=== PATIENT | female | born 1955 | race Caucasian/White ===

== ENCOUNTER 2017-11-14 16:00 | Inpatient (IN) ==
[2017-11-14 16:28] LABS: Basophils % 0.3 % (0.0-0.8); Eosinophils # 0.3 10*3/uL (0.0-0.87); Eosinophils % 2.5 % (0.00-10.9); Hematocrit 37.3 VOL% (35.7-47.0); Immature Granulocytes % 0.8 %; Immature Granulocytes Absolute 0.08 #; Lymphocytes # 1.8 10*3/uL (1.4-4.0); Lymphocytes % 17.5 % (21.3-54.2); Mean Corpuscular HGB Conc 32.2 GM/DL (32-36); Mean Corpuscular Hemoglobin 27 PG (27-34); Mean Corpuscular Volume 84.2 FL (87-102); Mean Platelet Volume 9.9 FL (9.6-12.0); Monocytes # 0.5 10*3/uL (0.11-0.8); Monocytes % 5.2 % (1.7-12.7); Neutrophils # 7.6 10*3/uL (1.4-7.4); Neutrophils % 73.7 % (38.7-73.9); Platelet Count 349 T/CUMM (130-400); Red Blood Count 4.43 MC/CUMM (3.8-5.5); Red Cell Distribution Width 13.6 % (9.3-17.3); White Blood Count 10.3 T/CUMM (4-12)
[2017-11-14 16:34] LABS: Apearance,Urine CLEAR (Clear); Bilirubin,Urine Negative (Negative); Blood, Urine Negative (Negative); Glucose,Urine (UA) Negative (Negative); Ketones,Urine 5 mg/dL (Negative); Mucus,Urine Occasional /LPF (Occasional); Nitrite,Urine Negative (Negative); Protein,Urine Negative; RBC,Urine 1 /HPF (0-4); Squamous Epithelial Cell,Urine Occasional /HPF (0-10); Urine Color Yellow (Yellow); Urine Specific Gravity 1.027 (1.001-1.035); WBC,Urine 4 /HPF (0-6)
[2017-11-14 16:52] LABS: Alanine Aminotransferase 29 U/L (13-56); Albumin 3.6 G/DL (3.4-5.0); Alkaline Phosphatase 102 U/L (45-117); Aspartate Amino Transferase 19 U/L (0-37); Bilirubin,Total < 0.39 MG/DL (0.2-1.0); Blood Urea Nitrogen 15 MG/DL (7-18); Calcium 8.6 MG/DL (8.5-10.1); Glucose 133 MG/DL (74-106); Osmolality,Calculated 283.3 MOS/KG (273-304); Potassium 3.7 MMOL/L (3.5-5.1); Sodium 141 MMOL/L (136-145); Total Protein 7.4 G/DL (6.4-8.3)
[2017-11-14] MEDS ORDERED: ONDANSETRON 4 MG/2 ML VIAL IV STA (18:14)
[2017-11-14] MEDS ORDERED: MORPHINE 4 MG/1 ML VIAL IV STA (18:14)
[2017-11-14] MEDS ORDERED: KETOROLAC 30 MG/1 ML VIAL IV STA (18:14)
[2017-11-14 20:54] LABS: Alanine Aminotransferase 29 U/L (13-56); Albumin 3.7 G/DL (3.4-5.0); Alkaline Phosphatase 101 U/L (45-117); Aspartate Amino Transferase 19 U/L (0-37); Bilirubin,Total < 0.39 MG/DL (0.2-1.0); Blood Urea Nitrogen 14 MG/DL (7-18); Calcium 8.8 MG/DL (8.5-10.1); Glucose 77 MG/DL (74-106); Osmolality,Calculated 280.3 MOS/KG (273-304); Potassium 3.9 MMOL/L (3.5-5.1); Sodium 141 MMOL/L (136-145); Total Protein 7.7 G/DL (6.4-8.3)
[2017-11-14] MEDS: DEXTROSE 5% LACTATED RINGERS 1,000 ML IV SCH (23:07)
[2017-11-15 07:40] LABS: Basophils % 0.4 % (0.0-0.8); Eosinophils # 0.2 10*3/uL (0.0-0.87); Eosinophils % 3.2 % (0.00-10.9); Hematocrit 35.8 VOL% (35.7-47.0); Hemoglobin 11.6 GM/DL (12.0-16.0); Immature Granulocytes % 0.7 %; Immature Granulocytes Absolute 0.05 #; Lymphocytes # 1.7 10*3/uL (1.4-4.0); Lymphocytes % 23.1 % (21.3-54.2); Mean Corpuscular HGB Conc 32.4 GM/DL (32-36); Mean Corpuscular Hemoglobin 27 PG (27-34); Mean Corpuscular Volume 84.4 FL (87-102); Mean Platelet Volume 9.9 FL (9.6-12.0); Monocytes # 0.6 10*3/uL (0.11-0.8); Monocytes % 8.7 % (1.7-12.7); Neutrophils # 4.6 10*3/uL (1.4-7.4); Neutrophils % 63.9 % (38.7-73.9); Platelet Count 300 T/CUMM (130-400); Red Blood Count 4.24 MC/CUMM (3.8-5.5); Red Cell Distribution Width 13.6 % (9.3-17.3); White Blood Count 7.2 T/CUMM (4-12)
[2017-11-15] MEDS ORDERED: PNEUMOCOCCAL VACCINE (23 VALENT) 0.5 ML VIAL IM ONE (09:00)
[2017-11-15] MEDS: DEXTROSE 5% LACTATED RINGERS 1,000 ML IV SCH ×3 (09:13→17:27)
[2017-11-15] MEDS: METOPROLOL SUCCINATE XL 50 MG TABLET PO SCH (09:14)
[2017-11-15] MEDS: PANTOPRAZOLE 40 MG TABLET PO SCH (09:14)
[2017-11-15] MEDS: ONDANSETRON 4 MG/2 ML VIAL IV PRN ×2 (11:14→17:20)
[2017-11-16] MEDS: DEXTROSE 5% LACTATED RINGERS 1,000 ML IV SCH ×4 (00:54→19:04)
[2017-11-16] MEDS ORDERED: ONDANSETRON 4 MG/2 ML VIAL ONE (09:04)
[2017-11-16] MEDS: ONDANSETRON 4 MG/2 ML VIAL IV PRN (09:07)
[2017-11-16] MEDS: METOPROLOL SUCCINATE XL 50 MG TABLET PO SCH (10:23)
[2017-11-16] MEDS: PANTOPRAZOLE 40 MG TABLET PO SCH (10:23)
[2017-11-16] MEDS ORDERED: LIDOCAINE 1% 5 ML VIAL ONE (10:25)
[2017-11-16] MEDS ORDERED: PROPOFOL 200 MG/20 ML VIAL IV ONE (10:25)
[2017-11-17] MEDS: MORPHINE 4 MG/1 ML VIAL IV PRN ×3 (05:47→17:12)
[2017-11-17] MEDS ORDERED: FAMOTIDINE 20 MG TABLET PO ONE (06:30)
[2017-11-17] MEDS ORDERED: DIAZEPAM 5 MG TABLET PO ONE (06:30)
[2017-11-17] MEDS ORDERED: ceFAZolin 1,000 MG in SYRINGE 1 EACH IV ONE (09:00)
[2017-11-17] MEDS: METOPROLOL SUCCINATE XL 50 MG TABLET PO SCH (09:20)
[2017-11-17] MEDS ORDERED: TISSUE ADHESIVE 1 EACH APPLICATOR TOP ONE (11:55)
[2017-11-17] MEDS ORDERED: MIDAZOLAM 2 MG/2 ML VIAL ONE (13:25)
[2017-11-17] MEDS ORDERED: SEVOFLURANE 1 UNIT/15 MINUTE INH ONE (14:04)
[2017-11-17] MEDS ORDERED: PROPOFOL 200 MG/20 ML VIAL IV ONE (14:04)
[2017-11-17] MEDS ORDERED: ONDANSETRON 4 MG/2 ML VIAL ONE ×2 (14:05→14:06)
[2017-11-17] MEDS ORDERED: GLYCOPYRROLATE 0.4 MG/2 ML VIAL ONE (14:05)
[2017-11-17] MEDS ORDERED: NEOSTIGMINE 10 MG/10 ML VIAL ONE (14:05)
[2017-11-17] MEDS ORDERED: ROCURONIUM 100 MG/10 ML VIAL IV ONE (14:05)
[2017-11-17] MEDS ORDERED: HYDROmorphone 2 MG/1 ML VIAL ONE (14:06)
[2017-11-17] MEDS: HYDROmorphone 2 MG/1 ML VIAL IV PRN ×4 (14:07→14:30)
[2017-11-17] MEDS ORDERED: ONDANSETRON 4 MG/2 ML VIAL IV PRN (14:11)
[2017-11-17] MEDS: DEXTROSE 5% LACTATED RINGERS 1,000 ML IV SCH (14:34)
[2017-11-17] MEDS: PANTOPRAZOLE 40 MG TABLET PO SCH (15:34)
[2017-11-18] MEDS: MORPHINE 4 MG/1 ML VIAL IV PRN (00:14)
[2017-11-18 03:52] VITALS: BP 130/59
[2017-11-18] MEDS: METOPROLOL SUCCINATE XL 50 MG TABLET PO SCH (08:49)
[2017-11-18] MEDS: PANTOPRAZOLE 40 MG TABLET PO SCH (08:49)
== END 2017-11-18 09:45 | disposition home or self-care (01) | DRG 357 ==
LOC: N.ED 16:00 → N.EDINP 19:16 → N.5E 20:17
PROVIDERS: ADMIT Surgery; ATTEND Surgery
PROC: LAPCHOL (2017-11-17 12:45)